=== PATIENT | female | born 2005 | race Hispanic/Latino ===

== ENCOUNTER 2025-02-20 11:27 | Day surgery (SDC) | payer OTHER ==
[2025-02-20] MEDS ORDERED: hydrALAZINE 20 MG/ML VIAL SLOW IVP PRN (11:29)
[2025-02-20 12:18] VITALS: BMI 27.8
== END 2025-02-20 13:48 | disposition home or self-care (01) ==
LOC: CSHLD/OP 11:27
PROVIDERS: ATTEND Family Medicine
DX: Z03.79 Encounter for other suspected maternal and fetal conditions ruled out (principal); Z90.49 Acquired absence of other specified parts of digestive tract; Z79.899 Other long term (current) drug therapy
CPT/HCPCS: 76819; 99282

== ENCOUNTER 2025-03-05 10:05 | Inpatient (IN) | payer OTHER ==
[~2025-03-05 10:05] MED LIST: Bupivacaine 0.25% HCL 30 ML VIAL ONE; Bupivacaine HCl 0.5%/Epinephrine 1:200,000/PF 30 ml Vial ONE
[2025-03-05 10:34] VITALS: BMI 28.0
[2025-03-05] MEDS ORDERED: hydrALAZINE 20 MG/ML VIAL SLOW IVP PRN ×2 (10:41→12:30)
[2025-03-05 11:15] LABS: Protein, Urine Random Quant Less than 10 mg/dL (1-14)
[2025-03-05 11:33] LABS: #Basophils 0.04 10x3/uL (0.0-0.2); #Eosinophils 0.03 10x3/uL (0.0-0.5); #Monocytes 0.90 10x3/uL (0.0-1.1); #Neutrophils 8.19 10x3/uL (1.5-8.4); %Basophils 0.4 % (0.0-2.0); %Eosinophils 0.3 % (0.0-6.0); %Lymphocytes 14.2 % (18.0-47.0); %Monocytes 8.4 % (0.0-10.0); %Neutrophils 76.1 % (40.0-75.0); Hematocrit 37.8 % (34.9-44.5); Hemoglobin 11.8 g/dL (12.0-15.5); Mean Corpuscular Hemoglobin 23.7 pg (27.0-33.0); Mean Corpuscular Volume 76.1 fL (81.6-98.3); Platelet Count 335 10x3/uL (150-450); Red Blood Cell (RBC) Count 4.97 10x6/uL (3.90-5.03); White Blood Cell (WBC) Count 10.74 10x3/uL (3.5-10.5)
[2025-03-05 11:53] LABS: ALT (SGPT) 31 U/L (Less than 34); AST (SGOT) 49 U/L (11-34); Albumin 3.0 g/dL (3.1-4.5); Alkaline Phosphatase 180 U/L (40-100); Anion Gap 12 mmol/L (10-20); BUN (Urea Nitrogen) 11 mg/dL (8.4-21.0); Bilirubin, Total 0.2 mg/dL (0.3-1.2); Calc. Creatinine Clearance 148 mL/min (70-130); Calcium 9.1 mg/dL (7.8-10.44); Carbon Dioxide 23 mmol/L (22-29); Chloride 106 mmol/L (98-107); Globulin 4.3 g/dL (2.4-3.5); Glucose 80 mg/dL (70-105); Potassium 4.1 mmol/L (3.5-5.1); Sodium 137 mmol/L (136-145)
[2025-03-05 11:54] LABS: Fetal Membranes Rupture RUPTURE DETECTED (No Rupture)
[2025-03-05] MEDS ORDERED: Carboprost 250 MCG/ML AMP IM PRN (12:30)
[2025-03-05] MEDS ORDERED: Acetaminophen 500 MG TAB PO PRN (12:30)
[2025-03-05] MEDS ORDERED: Tranexamic Acid 1,000 MG/10 ML VIAL IVP PRN (12:30)
[2025-03-05] MEDS ORDERED: Oxytocin 30 units/NS 500 ML 500 ML IV SCH ×2 (12:30)
[2025-03-05] MEDS ORDERED: Diphenoxylate HCl/Atropine Tablet PO PRN ×2 (12:30)
[2025-03-05] MEDS ORDERED: Ondansetron PF 4 MG/2 ML Vial IVP PRN ×2 (12:30→22:44)
[2025-03-05] MEDS ORDERED: Lidocaine 1% (PF) 30 ML VIAL SC PRN (12:30)
[2025-03-05 15:16] LABS: Hep B Surf Ag - L&D Non-Reactive S/CO (NonReactive)
[2025-03-05 15:17] LABS: Syphilis Antibody Index 0.06 S/CO (<1.00 Non-Reactive)
[2025-03-05 19:22] LABS: Glucose 85 mg/dL (70-105)
[2025-03-05] MEDS: fentaNYL/Ropivacaine Epidural 100 ML ONE (22:35)
[2025-03-05] MEDS ORDERED: diphenhydrAMINE 50 MG/ML VIAL IVP PRN (22:44)
[2025-03-05] MEDS ORDERED: fentaNYL 2 mcg/Ropivacaine 0.2% Epidural 100 ML CADD EPIDURAL SCH (22:45)
[2025-03-05] MEDS ORDERED: Communication Order-Pharmacy FS SCH (22:45)
[2025-03-06] MEDS ORDERED: hydrALAZINE 20 MG/ML VIAL SLOW IVP PRN (03:38)
[2025-03-06] MEDS ORDERED: Measles/Mumps/Rubella 10 MCG/0.5 ML VIAL SC ONE (03:38)
[2025-03-06] MEDS ORDERED: diphenhydrAMINE 25 MG CAP PO PRN (03:38)
[2025-03-06] MEDS ORDERED: Milk Of Magnesia 30 ML UDCUP PO PRN (03:38)
[2025-03-06] MEDS ORDERED: Benzocaine-Menthol 82.5 ML CAN TOP PRN (03:38)
[2025-03-06] MEDS ORDERED: Methylergonovine 0.2 MG/ML VIAL IM PRN (03:38)
[2025-03-06] MEDS ORDERED: Preparation H Ointment 28 GM TUBE PR PRN (03:38)
[2025-03-06] MEDS ORDERED: Bisacodyl 10 MG SUPP PR PRN (03:38)
[2025-03-06] MEDS ORDERED: Lanolin Ointment 7 GM TUBE TOP PRN (03:38)
[2025-03-06] MEDS ORDERED: Boostrix 0.5 ML (Tdap) VIAL (>/=7 yrs of age) IM ONE (03:38)
[2025-03-06] MEDS ORDERED: Methylergonovine 0.2 MG TAB PO PRN (03:38)
[2025-03-06] MEDS ORDERED: Oxytocin 30 units/NS 500 ML 500 ML IV SCH (03:45)
[2025-03-06] MEDS: Ibuprofen 800 MG TAB PO PRN (04:25)
[2025-03-06] MEDS: Acetaminophen 325 MG TAB PO PRN (04:25)
[2025-03-06] MEDS: Methylergonovine 0.2 MG/ML VIAL IM PRN (05:45)
[2025-03-06] MEDS: Ibuprofen 800 MG TAB PO SCH (06:24)
[2025-03-06] MEDS: Ferrous Sulfate 325 MG TAB PO SCH (09:01)
[2025-03-07 06:05] LABS: Hematocrit 30.2 % (34.9-44.5); Hemoglobin 9.6 g/dL (12.0-15.5)
[2025-03-08 08:40] VITALS: BP 117/79; TEMP 98.1
== END 2025-03-08 14:23 | disposition home or self-care (01) | DRG 807 ==
LOC: CSHLD/OP 10:05 → CSHLD 12:46 → CSHPED 03-06 06:10
PROVIDERS: ADMIT Emergency Medicine; ATTEND Emergency Medicine
PROC: 10E0XZZ Delivery of Products of Conception, External Approach (ICD-10-PCS; principal; 2025-03-06)
PROC: 0KQM0ZZ Repair Perineum Muscle, Open Approach (ICD-10-PCS; 2025-03-06)
PROC: 0UQMXZZ Repair Vulva, External Approach (ICD-10-PCS; 2025-03-06)
DX: O13.4 Gestational [pregnancy-induced] hypertension without significant proteinuria, complicating childbirth (principal); Z37.0 Single live birth; O70.1 Second degree perineal laceration during delivery; Z3A.38 38 weeks gestation of pregnancy; O99.02 Anemia complicating childbirth; Z79.899 Other long term (current) drug therapy
CPT/HCPCS: 36415; 51702; 80053; 82570; 84112; 84156; 85014; 85018; 85025; 86780; 86850; 86900; 86901; 87340; 99285; J0665; J2210; J7120